=== PATIENT | male | born 1985 | race Caucasian/White ===

== ENCOUNTER 2024-06-22 16:41 | Outpatient (CLI) | payer OTHER, SELFPAY | END 2024-06-22 16:42 | disposition home or self-care (01) | LOC: LKVREF 16:45 | PROVIDERS: PCP Family Medicine; Visit Provider Family Medicine | DX: R53.83 Other fatigue (principal); E66.9 Obesity, unspecified | CPT/HCPCS: 80053; 80061; 84443 ==